=== PATIENT | male | born 1995 | race Caucasian/White ===

== ENCOUNTER 2020-06-11 07:53 | Day surgery (SDC) | payer OTHER ==
[2020-05-23 12:17] LABS: HEMATOCRIT 44.1 % (37.9-51.0); HEMOGLOBIN 15.8 g/dL (13.5-17.0); MEAN CORPUSCULAR HEMOGLOBIN 33.1 pg (27.0-33.4); MEAN CORPUSCULAR HGB CONC 35.7 g/dL (32.0-36.0); MEAN CORPUSCULAR VOLUME 93 fl (80-97); PLATELET COUNT 269 10^3/uL (150-450); RED BLOOD COUNT 4.76 10^6/uL (4.35-5.55); RED CELL DISTRIBUTION WIDTH 12.9 % (11.5-14.0)
[2020-05-23 12:17] LABS: AMORPHOUS SEDIMENT,URINE 1+ /HPF; APPEARANCE,URINE CLOUDY; BILIRUBIN,URINE NEGATIVE (NEGATIVE); COLOR,URINE YELLOW; GLUCOSE, URINE NEGATIVE (NEGATIVE); KETONES,URINE NEGATIVE (NEGATIVE); LEUKOCYTE ESTERASE,URINE NEGATIVE (NEGATIVE); NITRITE,URINE NEGATIVE (NEGATIVE); PROTEIN,URINE NEGATIVE (NEGATIVE); URINE SPECIFIC GRAVITY 1.016; UROBILINOGEN,URINE NEGATIVE mg/dL (<2.0)
[2020-05-23 12:46] LABS: ANION GAP 10 (5-19); BLOOD UREA NITROGEN 9 mg/dL (7-20); CALCIUM 10.1 mg/dL (8.4-10.2); CARBON DIOXIDE 30 mmol/L (22-30); CHLORIDE 102 mmol/L (98-107); GLUCOSE 83 mg/dL (75-110); POTASSIUM 4.6 mmol/L (3.6-5.0)
--- NOTE | 2020-05-23 14:41 | RADIOLOGY REPORT (SQ) ---
EXAM DESCRIPTION: CHEST PA/LATERAL IMAGES COMPLETED DATE/TIME: 05/23/2020 1:43 pm REASON FOR STUDY: PRE-OP COMPARISON: None. EXAM PARAMETERS: NUMBER OF VIEWS: two views TECHNIQUE: Digital Frontal and Lateral radiographic views of the chest acquired. RADIATION DOSE: NA LIMITATIONS: none FINDINGS: LUNGS AND PLEURA: No opacities, masses or pneumothorax. No pleural effusion. MEDIASTINUM AND HILAR STRUCTURES: No masses or contour abnormalities. HEART AND VASCULAR STRUCTURES: Heart normal size. No evidence for failure. BONES: No acute findings. HARDWARE: None in the chest. OTHER: No other significant finding. IMPRESSION: NO SIGNIFICANT RADIOGRAPHIC FINDING IN THE CHEST. TECHNICAL DOCUMENTATION: JOB ID: [id number] 2010 [email or web address]- All Rights Reserved Reading location - IP/workstation name: [email or web address]
[~2020-06-11 07:53] MED LIST: CEFAZOLIN 2 GM/D5W RTU 2 GM/50 ML RTUPB IV ONE; CEFAZOLIN 2 GM/D5W RTU 2 GM/50 ML RTUPB IV PRN; CEFAZOLIN SODIUM 2 GM in DEXTROSE 5%-WATER 100 ML IV PRN; DEXAMETHASONE SOD PHOSPHATE INJ 4 MG/1 ML VIAL ONE; FENTANYL CITRATE INJ/PF 100 MCG/2 ML AMPUL ONE; LACTATED RINGERS 1000 ML IV PRN; LIDOCAINE 0.5% INJ-PF (5 MG/ML) 50 ML SDV SUBCUT PRN; MIDAZOLAM 2 MG/2 ML INJ ONE; ONDANSETRON HCL INJ/PF 4 MG/2 ML SDV ONE; PROPOFOL INJ 200 MG/20 ML VIAL IV ONE
[2020-06-11] MEDS ORDERED: ROPIVACAINE HCL 0.5% INJ/PF (5 MG/1 ML) 30 ML SDV ONE (08:53)
[2020-06-11] MEDS ORDERED: LIDOCAINE 2% INJ (20 MG/ML) 20 ML MDV ONE (08:55)
[2020-06-11] MEDS ORDERED: MIDAZOLAM 2 MG/2 ML INJ ONE (09:04)
[2020-06-11] MEDS ORDERED: FENTANYL CITRATE INJ/PF 100 MCG/2 ML AMPUL ONE (09:05)
[2020-06-11] MEDS ORDERED: ONDANSETRON HCL INJ/PF 4 MG/2 ML SDV IV PRN ×2 (10:58→13:05)
[2020-06-11] MEDS ORDERED: MORPHINE SULFATE 10 MG/ML INJ IV PRN ×2 (10:58→13:05)
[2020-06-11] MEDS ORDERED: DIPHENHYDRAMINE HCL 50 MG/ML VIAL IV PRN (10:58)
[2020-06-11] MEDS ORDERED: MEPERIDINE HCL/PF INJ 25 MG/1 ML DISP.SYRIN IV PRN (10:58)
[2020-06-11] MEDS ORDERED: PROMETHAZINE HCL INJ 25 MG/1 ML VIAL IV PRN ×2 (10:58)
[2020-06-11] MEDS ORDERED: FENTANYL CITRATE INJ/PF 100 MCG/2 ML AMPUL IV PRN ×3 (10:58)
[2020-06-11] MEDS ORDERED: OXYCODONE-ACETAMINOPHEN 5-325 MG TABLET PO PRN ×2 (10:58→13:05)
--- NOTE | 2020-06-11 13:06 | Discharge Summary ---
Discharge Summary (SDC) - Discharge Final Diagnosis: Left scaphoid nonunion Date of Surgery: 06/11/20 Discharge Date: 06/11/20 Condition: Good Treatment or Instructions: Schedule Follow Up w/ Dr. Shashank Barillas @ [facility] to be seen in 10-14 days or as scheduled [place]: [place]: [place]: TOBACCO CESSATION Ice and elevate Keep splint clean/dry/intact, do not remove. If your fingers become numb please unwrap the Pedro Luis wrap but leave the splint in place, if the sensation does not return within 30 minutes please return to the emergency department. May begin finger range of motion attempting to make full fist. Please use ibuprofen (Motrin or Advil) 600-800 mg every 8 hours as needed for pain or fever DO NOT TAKE w/ TORADOL may use once TORADOL complete. You may also use acetaminophen (Tylenol) 1000 mg every 4-6 hours as needed for pain or fever. Please be aware that many medications contain acetaminophen, do not exceed a total of 1000 mg of acetaminophen every 6 hours. If ibuprofen and acetaminophen are not sufficient for your pain you may take the Percocet/Grawn. Please be aware that the Percocet/Grawn does contain Tylenol. Stool softener of choice when on pain medication. USE OF GBKR-COD-[id number] IBUPROFEN: Ibuprofen (Advil, Nuprin, Medipren, Motrin IB) is a medication for fever and pain control. In addition, it has anti- inflammatory effects which may be beneficial, especially in the treatment of injuries. It's best to take ibuprofen with food. Persons with ulcer disease or allergy to aspirin should notify their physician of this before taking ibuprofen. Ibuprofen can be given every four to six hours, for a total of four doses daily. Age Pain or fever dose Antiinflammatory dose 6-8 yr 200 mg (1 tab) 200 mg (1 tab) 9-11 yr 200 mg (1 tab) 200-400 mg (1-2 tab) 11-14 yr 200-400 mg (1-2 tab) 400 mg (2 tab) 15-adult 400 mg (2 tab) 600 mg (3 tab) ORAL NARCOTIC MEDICATION: You have been given a prescription for pain control. This medication is a narcotic. It's best taken with food, as nausea can result if taken on an empty stomach. Don't operate machinery or drive within six hours of taking this medication. Do not combine this medicine with alcohol, or with any medication which can cause sedation (such as cold tablets or sleeping pills) unless you get permission from the physician. Narcotics tend to cause constipation. If possible, drink plenty of fluids and eat a diet high in fiber and fruits. Please be aware that prescription narcotics also have the potential for abuse. People become addicted to these medications because of the general sense of wellbeing that they induce. This feeling along with a significant reduction in tension, anxiety, and aggression provides a stimulating seductive quality to these drugs. Once your pain is under control, we encourage you to discard your unused narcotics. Prescriptions: Oxycodone HCl/Acetaminophen [Percocet 7.5-325 mg Tablet] 1 tab PO Q6 PRN #25 tab PRN Reason: Discharge Diet: As Tolerated Respiratory Treatments at Home: Deep Breathing/Coughing, Incentive Spirometer Discharge Activity: No Lifting Over 10 Pounds, No Lifting/Push/Pulling Report the Following to Your Physician Immediately: Fever over 101 Degrees, Unusual Bleeding, Redness, Swelling, Warmth, Increased Soreness
--- NOTE | 2020-06-11 13:13 | Operative Report ---
Operative Report DATE OF SURGERY: 06/11/20 PREOPERATIVE DIAGNOSIS: Left scaphoid nonunion status post ORIF POSTOPERATIVE DIAGNOSIS: Same OPERATION: Hardware removal left scaphoid with revision ORIF left scaphoid nonunion with autograft SURGEON: KANA BA ANESTHESIA: GA COMPLICATIONS: None ESTIMATED BLOOD LOSS: Minimal PROCEDURE: Indication for above procedure: 24yo old male who sustained a mid waist scaphoid fracture. Patient underwent open reduction internal fixation unfortunately collapse occurred at the scaphoid with persistent nonunion at that point given the collapse and hardware loosening decision was made to proceed with revision open reduction internal fixation. Risk and benefits were explained patient verbalized understanding consented for surgical procedure. Procedure In Detail: Patient was seen and evaluated in the preoperative holding area. The LEFT upper extremity was initialized and marked. Patient received 2g of Ancef IV for bacterial prophylaxis. Patient was taken back to the operative room where transferred to the operative table and placed under general anesthesia. Once they were adequately anesthetized a nonsterile tourniquet was placed on the upper extremity. A surgical team debriefing was performed ensuring all instrumentation was available, the surgical procedure was discussed with possi ble concerns reviewed. The upper extremity was prepped with chlorhexidine and alcohol and draped in a sterile fashion. A timeout was done identifying correct patient, procedure and extremity everyone in attendance agree with this and verbalized no concerns. The extremity was exsanguinated the tourniquet was inflated to 250 mmHg. Skin incision was utilized extending with a hockey-stick shaped incision along the thenar eminence and proximally overlying the FCR tendon. FCR tendon sheath was opened and FCR was retracted and a ulnar direction. The floor of the FCR sheath was incised. The distal portion of the radial scaphoid capitate ligament was identified and released centrally to allow for later repair. The scaphoid was then exposed. Prior Arthrex headless compression screw was successfully removed in its entirety. There was notable humpback deformity of the scaphoid with nonunion. The nonunion site was then exposed. Meticulous debridement was performed proximally and distally specifically along the tract of the prior screw until normal-appearing cancellus bone was identified. No remaining fibrous tissue was remaining after debridement. 0.062 K wires placed through the distal and proximal pole this was then booked open and radiographs performed demonstrating orthodoxy of scaphoid height. A 0.045 K wire was then placed into the lunate and scaphoid along with a scaphoid capitate pin to maintain alignment. Attention then turned to bone grafting. A flexor pollicis longus was swept ulnarly to expose the pronator quadratus was identified along with the radial artery which was retracted radially. Transverse skin incision was made into the pronator quadratus to expose the volar distal radius. The defect within the scaphoid was measured this was then planned out on the volar aspect of the distal radius with K wires. C-arm was obtained confirming appropriate placement of the K wires to avoid encroachment on the radiocarpal and distal radial ulnar joint. Osteotome was then used to complete cortical window. Through the cortical window copious amounts of cancellus bone was retrieved. Once adequate bone was retrieved the wound was copiously irrigated with normal saline. The defect was filled with 5 cc of the Tosh synthetic bone graft. The pronator quadratus fascia was then closed with interrupted 0 Vicryl suture. Attention then turned to bone grafting the scaphoid nonunion site. Wound was copiously irrigated with normal saline. Cancellus bone was then impacted into the nonunion site firmly until no remaining defects of the nonunion site were appreciated. C arm was obtained once again confirming appropriate height of the scaphoid. The [employer] scaphoid plate was then provisionally fixated with K wires C arm fluoroscopy was obtained confirming appropriate placement of the plate. Plate was then brought down to the volar cortex with cortical screws distally and proximally. C-arm was obtained which demonstrated no evidence of plate impingement on the distal radius which was also confirmed with direct visualization. Appropriate placement of the plate and acceptable orthodoxy of scaphoid height. The remaining 2 distal screws an d 2 proximal screws were then drilled to but not through the far cortex and appropriate size locking screw was placed under C arm guidance. Previous cortex screw proximally and distally were then exchanged for appropriate size locking screw. Wrist was placed through range of motion to ensure no evidence of impingement or crepitation. C arm was obtained confirming appropriate placement of the plate and fixation. Any remaining bone graft was filled through the small defects in the plate. The radial scaphoid capitate ligament was then closed with interrupted 3-0 Ethibond sutures x3. The FCR sheath was closed with interrupted 3-0 Vicryl suture. Wound was irrigated with normal saline. Tourniquet was deflated any peripheral bleeding was controlled with bipolar cautery. Subcutaneous tissues were closed with interrupted 3-0 Vicryl suture. Skin was closed with running subcuticular 4-0 Monocryl reinforced with Dermabond and Steri-Strips. Patient was placed in a volar splint. Sponge counts, instrument counts, needle counts were correct. Patient was then awoken from anesthesia. Transferred from the operating room table to the operating room stretcher. There was no intraoperative complications patient tolerated procedure well stable to PACU. IMPLANTS: [employer] volar scaphoid plate Postop plan: Patient follow in the office in 2 weeks at which point we will obtain radiograph s the patient will be placed in a short arm cast. Short arm cast will be continued until osseous union is confirmed. Patient will continue bone stimulator until osseous union is confirmed.
--- NOTE | 2020-06-11 15:33 | RADIOLOGY REPORT (SQ) ---
EXAM DESCRIPTION: NO CHG FLUORO; HAND LEFT 2 VIEWS IMAGES COMPLETED DATE/TIME: 06/11/2020 3:20 pm REASON FOR STUDY: REVISION/ORIF OF LEFT SCAPHOID COMPARISON: None. FLUOROSCOPY TIME: 1 minutes 32 seconds 8 Images saved to PACS LIMITATIONS: None. PROCEDURE: ORIF revision of the the left scaphoid. FINDINGS: Images from fluoro document the procedure. IMPRESSION: ORIF revision of the left scaphoid. Refer to operative note for further information. COMMENT: PQRS 6045F: Fluoroscopy time of the procedure is documented in the report. TECHNICAL DOCUMENTATION: JOB ID: [id number] 2010 [email or web address]- All Rights Reserved Reading location - IP/workstation name: [email or web address]
--- NOTE | 2020-06-11 15:33 | RADIOLOGY REPORT (SQ) ---
EXAM DESCRIPTION: NO CHG FLUORO; HAND LEFT 2 VIEWS IMAGES COMPLETED DATE/TIME: 06/11/2020 3:20 pm REASON FOR STUDY: REVISION/ORIF OF LEFT SCAPHOID COMPARISON: None. FLUOROSCOPY TIME: 1 minutes 32 seconds 8 Images saved to PACS LIMITATIONS: None. PROCEDURE: ORIF revision of the the left scaphoid. FINDINGS: Images from fluoro document the procedure. IMPRESSION: ORIF revision of the left scaphoid. Refer to operative note for further information. COMMENT: PQRS 6045F: Fluoroscopy time of the procedure is documented in the report. TECHNICAL DOCUMENTATION: JOB ID: [id number] 2010 [email or web address]- All Rights Reserved Reading location - IP/workstation name: [email or web address]
[2020-06-11] MEDS ORDERED: GLYCOPYRROLATE 1 MG/5 ML VIAL ONE (16:38)
[2020-06-11 16:53] VITALS: BP 136/91
== END 2020-06-11 14:50 | disposition home or self-care (01) ==
LOC: OROUT 07:53
PROVIDERS: ATTEND Orthopaedic Surgery
DX: S62.022K Displaced fracture of middle third of navicular [scaphoid] bone of left wrist, subsequent encounter for fracture with nonunion (principal); X58.XXXD Exposure to other specified factors, subsequent encounter; F17.210 Nicotine dependence, cigarettes, uncomplicated; Z03.818 Encounter for observation for suspected exposure to other biological agents ruled out
CPT/HCPCS: 36415; 85027; 87635; 80048; 81001; 71046; 73120; 25440; 20680; J2795; J2250; J3490 ×2; J0690 ×2; J1100; J3010; J2405; J7060; J2704; C9803